=== PATIENT | male | born 1950 ===

== ENCOUNTER 2020-07-23 07:49 | Outpatient (CLI) | payer OTHER | END 2020-07-23 08:07 | disposition home or self-care (01) | LOC: RAD 07:49 → TOM 08:15 | PROVIDERS: ATTEND Internal Medicine | DX: K44.9 Diaphragmatic hernia without obstruction or gangrene (principal); R13.12 Dysphagia, oropharyngeal phase; R10.13 Epigastric pain; R11.0 Nausea; R11.10 Vomiting, unspecified ==

== ENCOUNTER 2020-07-28 08:10 | Outpatient (CLI) | payer OTHER | END 2020-07-28 08:14 | disposition home or self-care (01) | LOC: RX STUDY 08:10 | PROVIDERS: ATTEND Internal Medicine | DX: R13.12 Dysphagia, oropharyngeal phase (principal); R10.13 Epigastric pain; R11.0 Nausea ==